=== PATIENT | female | born 1995 | race Caucasian/White ===

== ENCOUNTER → 2024-02-25 09:46 | Outpatient (REF) | payer OTHER, SELFPAY | LOC: PNTC 09:46 | PROVIDERS: ATTENDING PHYSICIAN Obstetrics & Gynecology | DX: O46.90 Antepartum hemorrhage, unspecified, unspecified trimester (principal) | CPT/HCPCS: 76801 ==

== ENCOUNTER 2024-09-09 10:08 | Inpatient (IN) | payer OTHER, SELFPAY ==
[2024-09-09 10:19] VITALS: BP 120/84; BMI 22.5
[2024-09-09] MEDS: LR 1000 IV ×2 (11:00→12:43)
[2024-09-09 12:28] LABS: % Basophils 0.6 % (0-2); % Eosinophils 0.8 % (0-6); % Immature Granulocytes 0.6 % (0-0.5); % Lymphocytes 16.3 % (20.5-51.1); % Monocytes 5.6 % (1.7-9.3); % Neutrophils 76.1 % (42.2-75.2); Absolute Basophils 0.1 10^3/uL (0-0.2); Absolute Eosinophils 0.1 10^3/uL (0-0.7); Absolute Immature Granulocytes 0.1 10^3/uL (0-0.05); Absolute Lymphocytes 1.4 10^3/uL (1.2-3.4); Absolute Monocytes 0.5 10^3/uL (0.1-0.6); Absolute Neutrophils 6.7 10^3/uL (1.4-6.5); Hematocrit 36.8 % (37.0-47.0); Hemoglobin 12.2 g/dL (12.0-16.0); Mean Corp Hgb Conc. 33.2 g/dL (33.0-37.0); Mean Corpuscular Hgb 29.2 pg (27.0-31.0); Mean Platelet Volume 12.8 fL (7.4-10.4); Nucleated Red Blood Cells % 0 %; Platelet Count 133 10^3/uL (130-400); Red Blood Cell Count 4.18 10^6/uL (4.20-5.40); Red Cell Dist. Width 19.3 % (11.5-14.5); White Blood Cell Count 8.8 10^3/uL (4.8-10.8)
[2024-09-09] MEDS: SUBLIMAZE 100 MCG EPIDURAL (12:43)
[2024-09-09] MEDS: FENTANYL/BUPIVACAINE 100 EPIDURAL (12:44)
[2024-09-09] MEDS: METHERGINE INJECTION 0.2 MG IM (16:55)
[2024-09-09] MEDS: TRANEXAMIC ACID 100 IV (17:11)
[2024-09-09] MEDS: CYTOTEC 800 MCG PO (17:23)
[2024-09-09] MEDS: ANCEF 10 IV (17:48)
[2024-09-09] MEDS: ZOFRAN 4 MG IV (17:50)
[2024-09-09 17:51] LABS: Hematocrit 36.5 % (37.0-47.0); Hemoglobin 12.2 g/dL (12.0-16.0); Platelet Count 128 10^3/uL (130-400)
[2024-09-09 17:56] LABS: INR 0.97; PT 13.2 Sec (11.4-14.6)
[2024-09-09 17:57] LABS: APTT 25.8 Sec (23.4-35.0); Fibrinogen 371 MG/DL (199-459)
[2024-09-10 05:47] LABS: Hematocrit 29.8 % (37.0-47.0); Hemoglobin 9.9 g/dL (12.0-16.0); Mean Corp Hgb Conc. 33.2 g/dL (33.0-37.0); Mean Corpuscular Hgb 29.3 pg (27.0-31.0); Mean Corpuscular Volume 88.2 fL (81.0-99.0); Mean Platelet Volume 12.5 fL (7.4-10.4); Platelet Count 115 10^3/uL (130-400); Red Blood Cell Count 3.38 10^6/uL (4.20-5.40); Red Cell Dist. Width 19.3 % (11.5-14.5); White Blood Cell Count 11.7 10^3/uL (4.8-10.8)
[2024-09-10] MEDS: SENOKOT-S 1 TABLET PO (08:25)
[2024-09-10] MEDS: PROZAC 20 MG PO (08:26)
[2024-09-10] MEDS: PRENATAL PLUS 1 TABLET PO (08:27)
[2024-09-10] MEDS: FEOSOL 325 MG PO (09:52)
[2024-09-11] MEDS: PRENATAL PLUS 1 TABLET PO (06:22)
[2024-09-11] MEDS: SENOKOT-S 1 TABLET PO (08:00)
[2024-09-11] MEDS: FEOSOL 325 MG PO (08:01)
[2024-09-11] MEDS: PROZAC 20 MG PO (08:01)
== END 2024-09-11 11:17 | disposition home or self-care (01) | DRG 768 ==
LOC: LDRP 10:08
PROVIDERS: ADMITTING PHYSICIAN Obstetrics & Gynecology
PROC: 0W3R7ZZ Control Bleeding in Genitourinary Tract, Via Natural or Artificial Opening (ICD-10-PCS; 2024-09-09)
PROC: 10E0XZZ Delivery of Products of Conception, External Approach (ICD-10-PCS; 2024-09-09)
DX: O70.0 First degree perineal laceration during delivery (principal); Z37.0 Single live birth; O67.8 Other intrapartum hemorrhage; Z3A.39 39 weeks gestation of pregnancy; O69.1XX0 Labor and delivery complicated by cord around neck, with compression, not applicable or unspecified
CPT/HCPCS: 85014; 85018; 85025; 85027; 85049; 85384; 85610; 85730; 86780; 86850; 86900; 86901

== ENCOUNTER → 2025-06-13 09:30 | Outpatient (REF) | payer OTHER, SELFPAY | LOC: RAD 09:30 | PROVIDERS: ATTENDING PHYSICIAN Obstetrics & Gynecology | DX: O26.851 Spotting complicating pregnancy, first trimester (principal) | CPT/HCPCS: 76801 ==

== ENCOUNTER 2025-10-11 14:02 | Observation (INO) | payer OTHER, SELFPAY ==
[2025-10-11 14:21] VITALS: BP 104/65; BMI 21.8
[2025-10-11 15:24] LABS: Urine Character Cloudy (Clear)
== END 2025-10-11 17:06 | disposition home or self-care (01) ==
LOC: LDRP 14:02
PROVIDERS: ADMITTING PHYSICIAN Obstetrics & Gynecology
DX: O46.92 Antepartum hemorrhage, unspecified, second trimester (principal); Z3A.27 27 weeks gestation of pregnancy; O36.8120 Decreased fetal movements, second trimester, not applicable or unspecified; Z84.19 Family history of other disorders of kidney and ureter; Z83.49 Family history of other endocrine, nutritional and metabolic diseases
CPT/HCPCS: 76815; 76817; 81003; G0378